=== PATIENT | female | born 1985 | race Caucasian/White ===

== ENCOUNTER 2017-09-04 08:54 | Emergency (ER) | payer OTHER ==
[2017-09-04 09:10] VITALS: RESP 17
[2017-09-04] MEDS ORDERED: SODIUM CHLORIDE 0.9% 1,000 ML IV STA (09:21)
--- NOTE | 2017-09-04 09:25 | ED ---
General Adult HPI - General Chief complaint: Abdominal Pain Stated complaint: Post Surgical Bleed Time Seen by Provider: 09/04/17 09:15 Source: patient, RN notes reviewed, old records reviewed Mode of arrival: ambulatory Limitations: no limitations - History of Present Illness Initial comments: Patient is a 32-year-old female who presents emergency room today with a chief complaint of increased abdominal pain on the left lower side with some vaginal bleeding. She does admit that she had a fallopian tube removed for an ectopic just 3 days ago. She states that she noticed some pain and bleeding that started approximately 5 hours ago at for him. She states she has had change pad once. She states it's a dark color. Patient denies any other complaints or symptoms. She states that she's had some spotting since the procedure. Patient denies any recent fever, chills, shortness of breath, chest pain, back pain, nausea or vomiting, numbness or tingling, dysuria or hematuria , constipation or diarrhea, headaches or visual changes, or any other complaints. - Related Data Previous Rx's Medication Instructions Recorded Acetaminophen-Codeine 300-30mg 2 tab PO Q6H PRN #30 tablet 09/02/17 [Tylenol #3] Ibuprofen [Motrin] 600 mg PO Q6HR PRN #30 tab 09/02/17 Allergies Allergy/AdvReac Type Severity Reaction Status Date / Time No Known Allergies Allergy Verified 09/04/17 09:53 Review of Systems ROS Statement: Those systems with pertinent positive or pertinent negative responses have been documented in the HPI. ROS Other: All systems not noted in ROS Statement are negative. Past Medical History Past Medical History: Hypertension Additional Past Medical History / Comment(s): Left Oophorectomy History of Any Multi-Drug Resistant Organisms: None Reported Past Surgical History: Orthopedic Surgery Additional Past Surgical History / Comment(s): Ortho surgery on her right foot. Past Anesthesia/Blood Transfusion Reactions: No Reported Reaction Past Psychological History: Depression Smoking Status: Current every day smoker Past Alcohol Use History: None Reported Past Drug Use History: Marijuana - Past Family History Sister(s) Additional Family Medical History / Comment(s): Hypoglycemia General Exam - General Exam Comments Initial Comments: General: The patient is awake and alert, in no distress, and does not appear acutely ill. Eye: Pupils are equal, round and reactive to light, extra-ocular movements are intact. No nystagmus. There is normal conjunctiva bilaterally. No signs of icterus. Ears, nose, mouth and throat: There are moist mucous membranes and no oral lesions. Neck: The neck is supple, there is no tenderness or JVD. Cardiovascular: There is a regular rate and rhythm. No murmur, rub or gallop is appreciated. Respiratory: Lungs are clear to auscultation, respirations are non-labored, breath sounds are equal. No wheezes, stridor, rales, or rhonchi. Gastrointestinal: patient does have some bruising around the incision sites to the abdomen. Abdomen soft on palpation with bowel sounds normal. Mild tenderness left lower quadrant with mild tenderness on the right. No rebound tenderness. No guarding. No CVA tenderness. Musculoskeletal: Normal ROM, no tenderness. Strength 5/5. Sensation intact. Pulses equal bilaterally 2+. Neurological: A&O x 3. CN II-XII intact, There are no obvious motor or sensory deficits. Coordination appears grossly intact. Speech is normal. Skin: Skin is warm and dry and no rashes or lesions are noted. Psychiatric: Cooperative, appropriate mood & affect, normal judgment. Limitations: no limitations Course Vital Signs 09/04/17 09/04/17 09:04 12:05 Temperature 98.3 F 98.8 F Pulse Rate 92 79 Respiratory 17 17 Rate Blood Pressure 149/96 132/74 O2 Sat by Pulse 100 99 Oximetry Medical Decision Making - Medical Decision Making Patient's CT reviewed shows 1. A moderate hemorrhagic cul-de-sac free fluid. 2. Endometrial stripe measuring 1.3 cm which is at the upper limits of normal hour, thickening seems to extend is symmetric reports the right. 3. Mild enlargement of the left ovary. 4. Suggestion of some mild nonspecific retroperitoneal inflammation. A few scattered borderline enlarged mesenteric lymph nodes are probably reactive. Results were discussed with attending physician did discuss case with Dr. Escamilla. Patient will be discharged home advised : [facility] for follow-up appointment later today. Advised return if any symptoms increase or worsen or for any other concerns. - Lab Data Result diagrams: 09/04/17 09:49 09/04/17 09:49 Lab Results 09/04/17 09/04/17 09/04/17 Range/Units 09:49 09:49 09:49 WBC 11.7 H (3.8-10.6) k/uL RBC 3.22 L (3.80-5.40) m/uL Hgb 9.7 L (11.4-16.0) gm/dL Hct 30.4 L (34.0-46.0) % MCV 94.5 (80.0-100.0) fL MCH 30.2 (25.0-35.0) pg MCHC 32.0 (31.0-37.0) g/dL RDW 12.8 (11.5-15.5) % Plt Count 320 (150-450) k/uL Neutrophils % 52 % Lymphocytes % 39 % Monocytes % 5 % Eosinophils % 1 % Basophils % 0 % Neutrophils # 6.0 (1.3-7.7) k/uL Lymphocytes # 4.6 (1.0-4.8) k/uL Monocytes # 0.6 (0-1.0) k/uL Eosinophils # 0.2 (0-0.7) k/uL Basophils # 0.1 (0-0.2) k/uL Sodium 138 (137-145) mmol/L Potassium 4.0 (3.5-5.1) mmol/L Chloride 105 (98-107) mmol/L Carbon Dioxide 24 (22-30) mmol/L Anion Gap 9 mmol/L BUN 13 (7-17) mg/dL Creatinine 0.65 (0.52-1.04) mg/dL Est GFR (MDRD) Af Amer >60 (>60 ml/min/1.73 sqM) Est GFR (MDRD) Non-Af >60 (>60 ml/min/1.73 sqM) Glucose 85 (74-99) mg/dL Calcium 8.7 (8.4-10.2) mg/dL Total Bilirubin 0.2 (0.2-1.3) mg/dL AST 19 (14-36) U/L ALT 34 (9-52) U/L Alkaline Phosphatase 57 (38-126) U/L Total Protein 6.4 (6.3-8.2) g/dL Albumin 3.5 (3.5-5.0) g/dL Urine Color Light Yellow Urine Appearance Clear (Clear) Urine pH 6.5 (5.0-8.0) Ur Specific Glide 1.015 (1.001-1.035) Urine Protein Negative (Negative) Urine Glucose (UA) Negative (Negative) Urine Ketones Negative (Negative) Urine Blood Large H (Negative) Urine Nitrite Negative (Negative) Urine Bilirubin Negative (Negative) Urine Urobilinogen <2.0 (<2.0) mg/dL Ur Leukocyte Esterase Negative (Negative) Urine RBC 6 H (0-5) /hpf Urine WBC 2 (0-5) /hpf Ur Squamous Epith Cells 1 (0-4) /hpf Urine Mucus Rare H (None) /hpf Disposition Clinical Impression: Abdominal pain Disposition: HOME SELF-CARE Condition: Stable Instructions: Abdominal Pain (ED) Additional Instructions: Please follow-up with [facility] next 1-2 days. Please return here to the emergency room if any symptoms increase worsen or for any other concerns. Referrals: None,Stated [Primary Care Provider] - 1-2 days Marleen Gaytan DO [Doctor of Osteopathic Medicine] - 1-2 days Time of Disposition: 12:48
[2017-09-04 10:11] LABS: Appearance,Urine Clear (Clear); Basophils # (A) 0.1 k/uL (0-0.2); Basophils % (A) 0 %; Bilirubin,Urine Negative (Negative); CH 30.6; CHCM 32.5; Eosinophils # (A) 0.2 k/uL (0-0.7); Eosinophils % (A) 1 %; Glucose,Urine (UA) Negative (Negative); HCT 30.4 % (34.0-46.0); HDW 2.28; HGB 9.7 gm/dL (11.4-16.0); Ketones,Urine Negative (Negative); Leukocyte Esterase,Urine Negative (Negative); Luc # (Auto) 0.26; Luc % (Auto) 2; Lymphocytes # (A) 4.6 k/uL (1.0-4.8); Lymphocytes % (A) 39 %; MCH 30.2 pg (25.0-35.0); MCV 94.5 fL (80.0-100.0); Mean Platelet Volume 7.4; Monocytes # (A) 0.6 k/uL (0-1.0); Monocytes % (A) 5 %; Mucus,Urine Rare /hpf; Neutrophils % (A) 52 %; Nitrite,Urine Negative (Negative); PH, Urine 6.5 (5.0-8.0); Particle Count 766; Protein,Urine Negative (Negative); RBC 3.22 m/uL (3.80-5.40); RBC,Urine 6 /hpf (0-5); RDW 12.8 % (11.5-15.5); Specific Gravity,Urine 1.015 (1.001-1.035); Squamous Epithelial Cell,Urine 1 /hpf (0-4); UA Billing (MACRO vs. MICRO) MICRO; Urobilinogen,Urine <2.0 mg/dL (<2.0); WBC 11.7 k/uL (3.8-10.6); WBC (Perox) 11.29; WBC,Urine 2 /hpf (0-5)
[2017-09-04 10:18] LABS: ALT 34 U/L (9-52); AST 19 U/L (14-36); Alkaline Phosphatase 57 U/L (38-126); Anion Gap 9 mmol/L; Blood Urea Nitrogen 13 mg/dL (7-17); Calcium 8.7 mg/dL (8.4-10.2); Carbon Dioxide 24 mmol/L (22-30); Chloride 105 mmol/L (98-107); Glucose 85 mg/dL (74-99); Non-African American GFR(MDRD) >60 (>60 ml/min/1.73 sqM); Sodium 138 mmol/L (137-145); Total Bilirubin 0.2 mg/dL (0.2-1.3); Total Protein 6.4 g/dL (6.3-8.2)
[2017-09-04] MEDS ORDERED: RX INFO: IV CONTRAST WAS GIVEN 1 EACH MISC MISCELLANE PRN (10:55)
[2017-09-04] MEDS ORDERED: HYDROmorphone 1 MG/ML 1 ML SYRINGE IVP STA (10:57)
[2017-09-04] MEDS ORDERED: ONDANSETRON 4 MG/2 ML VIAL IVP STA (10:57)
--- NOTE | 2017-09-04 12:05 | CT ---
EXAMINATION TYPE: CT abdomen pelvis w con DATE OF EXAM: 09/04/2017 COMPARISON: NONE HISTORY: 32-year-old female complains of pelvic pain and excessive vaginal bleeding post ectopic preg laurent removal. TECHNIQUE: Contiguous axial scanning of the abdomen and pelvis following administration of 100 ml Omn ipaque 300 IV contrast. Delayed images through the kidneys and coronal/sagittal reconstructions perf ormed. CT DLP: 681.4 mGycm Automated exposure control for dose reduction was used. FINDINGS: Heart is normal size without pericardial effusion. Strandy atelectasis at the peripheral left base. Tiny hiatal hernia. Liver is enlarged measuring 20.7 cm craniocaudal. Portal venous system is patent. No biliary ductal d ilatation. Gallbladder, adrenal glands, kidneys, spleen, and pancreas appear within normal limits. There is some subcutaneous edema along the deep mid to lower anterolateral abdominal wall. Scattered nonenlarged and borderline enlarged central mesenteric lymph nodes measuring up to 7 mm, fo r example, coronal image 35. There is some fat stranding along the retroperitoneum at the level of the aortic bifurcation. Normal appendix. Mild to moderate stool burden. No pericolonic inflammatory change. The uterus is anteverted and tilted towards the right and there is moderate cul-de-sac mixed density fluid. Attenuation measures up to 79 Hounsfield units suggesting hemorrhagic fluid. The left ovary is estimated at 3.4 x 3.3 x 4.2 cm for a volume of 23.6 ml which is mildly enlarged. The right ovary is not well delineated from the uterus and adjacent fluid. The endometrium is prominent at 1.3 cm but asymmetrically towards the right cornua. Bladder is urine distended. Bones: No osseous destructive process. IMPRESSION: 1. MODERATE HEMORRHAGIC CUL-DE-SAC FREE FLUID. CLINICALLY CORRELATE. 2. ENDOMETRIAL STRIPE MEASURING 1.3 CM WHICH IS AT THE UPPER LIMITS OF NORMAL. HOWEVER, THICKENING SE EMS TO EXTEND ASYMMETRICALLY TOWARD THE RIGHT CORNUA. 3. MILD ENLARGEMENT OF THE LEFT OVARY COULD BE SECONDARY TO UNDERLYING PHYSIOLOGIC CHANGES. 4. PELVIC ULTRASOUND WITH OVARIAN DOPPLERS CAN FURTHER EVALUATE ALL OF THESE FINDINGS. 5. SUGGESTION OF SOME MILD NONSPECIFIC RETROPERITONEAL INFLAMMATION. A FEW SCATTERED BORDERLINE ENLAR GED MESENTERIC LYMPH NODES ARE PROBABLY REACTIVE.
[2017-09-04 12:06] VITALS: TEMP 98.8
[2017-09-04 13:06] VITALS: BP 148/85; PULSE 71
== END 2017-09-04 13:14 | disposition home or self-care (01) ==
LOC: EC 08:54
DX: R10.32 Left lower quadrant pain (principal); N93.9 Abnormal uterine and vaginal bleeding, unspecified; F17.200 Nicotine dependence, unspecified, uncomplicated
CPT/HCPCS: 96374 ×2; 96375 ×2; 99285 ×2; 36415; 80053; 85025; 81001; 74177; J2405; J1170; Q9967